=== PATIENT | male | born 1975 | race Caucasian/White ===

== ENCOUNTER 2022-07-01 17:25 | Emergency (ER) | payer BC ==
[2022-07-01 18:15] LABS: CORONAVIRUS COVID-19 NAA NEGATIVE (NEGATIVE); RESPIRATORY SYNCYTIAL VIR NAA NEGATIVE (NEGATIVE)
[2022-07-01 18:25] LABS: ANION GAP 8.3 meq/L (7-15); CHLORIDE,CL 102 mmol/L (98-107); SODIUM,NA 140 mmol/L (136-145)
[2022-07-01] MEDS: Albuterol/Ipratropium 3.0-0.5 MG/3 ML Neb Soln NEB ONE (18:30)
[2022-07-01 18:36] LABS: ESTIMATED GFR 61 mL/min (>=60)
== END 2022-07-01 19:15 | disposition home or self-care (01) ==
LOC: LL.ED 17:25
DX: J18.9 Pneumonia, unspecified organism (principal); I10 Essential (primary) hypertension; E66.9 Obesity, unspecified; Z68.30 Body mass index [BMI] 30.0-30.9, adult; Z20.822 Contact with and (suspected) exposure to COVID-19
CPT/HCPCS: 0241U; 36415; 71046; 80053; 85025; 86140; 99285; J7620-GY

== ENCOUNTER 2023-12-06 09:01 | Emergency (ER) | payer OTHER ==
[2023-12-06 10:01] LABS: BASOPHILS ABSOLUTE AUTO 0.06 K/uL (0.00-0.20); BASOPHILS PERCENT AUTO 0.4 % (0.0-2.0); EOSINOPHILS ABSOLUTE AUTO 0.25 K/uL (0.00-0.50); EOSINOPHILS PERCENT AUTO 1.8 % (0.0-5.0); HEMATOCRIT 52.6 % (39.0-49.0); LYMPHOCYTES ABSOLUTE AUTO 1.52 K/uL (0.50-3.50); LYMPHOCYTES PERCENT AUTO 11.2 % (10.0-50.0); MEAN CORPUSCULAR HEMOGLOBIN 29.7 pg (28.2-33.3); MEAN CORPUSCULAR HGB CONC 34.2 g/dL (31.7-36.0); MEAN CORPUSCULAR VOLUME 86.8 fL (84.0-98.0); MONOCYTES ABSOLUTE AUTO 0.93 K/uL (0.00-1.00); MONOCYTES PERCENT AUTO 6.8 % (2.0-14.0); NEUTROPHILS ABSOLUTE AUTO 10.85 K/uL (1.40-7.00); NEUTROPHILS PERCENT AUTO 79.8 % (45.0-80.0); PLATELET COUNT,PLT 240 K/uL (150-350); RED BLOOD CELL COUNT 6.06 M/uL (4.33-5.41); RED CELL DISTRIBUTION WIDTH 13.6 % (11.2-14.1); WHITE BLOOD CELL COUNT,WBC 13.6 K/uL (4.0-10.2)
[2023-12-06] MEDS ORDERED: Naloxone 0.4 MG/ML SDV IVPUSH PRN (10:03)
[2023-12-06] MEDS: Ondansetron 4 MG/2 ML SDV IVPUSH ONE (10:08)
[2023-12-06] MEDS: HYDROmorphone 1 MG/ML Syringe IVPUSH ONE (10:08)
[2023-12-06] MEDS: Sodium Chloride 0.9% 1,000 ML IV ONE ×2 (10:09→11:33)
[2023-12-06] MEDS: Orphenadrine 60 MG/2 ML Inj IV ONE (10:09)
[2023-12-06] MEDS: Ketorolac 15 MG/ML SDV IVPUSH ONE (10:10)
[2023-12-06 10:20] LABS: ALANINE AMINOTRANSFERASE,ALT 52 U/L (12-78); ALBUMIN 3.9 g/dL (3.4-5.0); ALKALINE PHOSPHATASE 80 IU/L (46-116); ANION GAP 13.1 meq/L (7-15); ASPARTATE AMNIOTRANSFERASE,AST 22 U/L (15-37); BILIRUBIN TOTAL 0.8 mg/dL (0.2-1.0); BLOOD UREA NITROGEN,BUN 15 mg/dL (7-18); CALCIUM 9.3 mg/dL (8.5-10.1); CARBON DIOXIDE,CO2 24.9 mmol/L (21.0-32.0); CHLORIDE,CL 98 mmol/L (98-107); CREATININE 1.03 mg/dL (0.51-1.17); ESTIMATED GFR 91 mL/min (>=60); GLUCOSE RANDOM 212 mg/dL (70-99); MAGNESIUM 2.1 mg/dL (1.8-2.4); POTASSIUM,K 3.9 mmol/L (3.5-5.1); PROTEIN TOTAL,TP 8.5 g/dL (6.4-8.2); SODIUM,NA 136 mmol/L (136-145)
[2023-12-06 11:15] LABS: CORONAVIRUS COVID-19 NAA NEGATIVE (NEGATIVE); INFLUENZA A NAA NEGATIVE (NEGATIVE); INFLUENZA B NAA NEGATIVE (NEGATIVE); RESPIRATORY SYNCYTIAL VIR NAA NEGATIVE (NEGATIVE)
[2023-12-06] MEDS: methylPREDNISolone Sodium Succinate 125 MG/2 ML SDV IVPUSH ONE (12:49)
[2023-12-06] MEDS: Sodium Chloride 0.9% 10 ML Syringe FLUSH PRN (12:49)
== END 2023-12-06 13:00 | disposition home or self-care (01) ==
LOC: LL.ED 09:01
DX: M54.42 Lumbago with sciatica, left side (principal); E86.0 Dehydration; I10 Essential (primary) hypertension; Z88.1 Allergy status to other antibiotic agents; Z79.899 Other long term (current) drug therapy; Z79.82 Long term (current) use of aspirin
CPT/HCPCS: 0241U; 36415; 74176; 80053; 83605; 83735; 85025; 96361; 96374; 96375; 99284; 99284-25; J1170; J1885; J2360; J2405; J2930; J3490; J7030

== ENCOUNTER 2024-07-01 19:04 | Emergency (ER) | payer BC, OTHER ==
[2024-07-01 19:37] LABS: BASOPHILS ABSOLUTE AUTO 0.04 K/uL (0.00-0.20); BASOPHILS PERCENT AUTO 0.7 % (0.0-2.0); EOSINOPHILS ABSOLUTE AUTO 0.16 K/uL (0.00-0.50); EOSINOPHILS PERCENT AUTO 2.8 % (0.0-5.0); HEMATOCRIT 42.7 % (39.0-49.0); HEMOGLOBIN 14.8 g/dL (13.1-16.8); IMMATURE GRAN ABSOLUTE AUTO 0.01 10^3/uL (0.00-0.50); IMMATURE GRAN PERCENT AUTO 0.2 % (0.0-5.0); LYMPHOCYTES ABSOLUTE AUTO 1.77 K/uL (0.50-3.50); MEAN CORPUSCULAR HEMOGLOBIN 30.1 pg (28.2-33.3); MEAN CORPUSCULAR HGB CONC 34.7 g/dL (31.7-36.0); MONOCYTES ABSOLUTE AUTO 0.81 K/uL (0.00-1.00); MONOCYTES PERCENT AUTO 14.2 % (2.0-14.0); NEUTROPHILS ABSOLUTE AUTO 2.92 K/uL (1.40-7.00); NEUTROPHILS PERCENT AUTO 51.1 % (45.0-80.0); PLATELET COUNT,PLT 197 K/uL (150-350); RED BLOOD CELL COUNT 4.91 M/uL (4.33-5.41); RED CELL DISTRIBUTION WIDTH 12.7 % (11.2-14.1); WHITE BLOOD CELL COUNT,WBC 5.7 K/uL (4.0-10.2)
[2024-07-01 20:02] LABS: ALANINE AMINOTRANSFERASE,ALT 66 U/L (12-78); ALBUMIN 3.5 g/dL (3.4-5.0); ALKALINE PHOSPHATASE 62 IU/L (46-116); ANION GAP 9.9 meq/L (7-15); ASPARTATE AMNIOTRANSFERASE,AST 26 U/L (15-37); BILIRUBIN TOTAL 0.4 mg/dL (0.2-1.0); BLOOD UREA NITROGEN,BUN 20 mg/dL (7-18); CARBON DIOXIDE,CO2 29.1 mmol/L (21.0-32.0); CHLORIDE,CL 103 mmol/L (98-107); CREATININE 0.94 mg/dL (0.51-1.17); GLUCOSE RANDOM 117 mg/dL (70-99); POTASSIUM,K 3.6 mmol/L (3.5-5.1); PRO B-TYPE NATRIUR PEPT,BNPPRO 37 pg/mL (0-125); PROTEIN TOTAL,TP 7.6 g/dL (6.4-8.2); SODIUM,NA 142 mmol/L (136-145)
[2024-07-01 20:09] LABS: CALCIUM 8.7 mg/dL (8.5-10.1)
[2024-07-01 20:19] LABS: ESTIMATED GFR 101 mL/min (>=60)
== END 2024-07-01 20:45 | disposition home or self-care (01) ==
LOC: LL.ED 19:04
DX: R06.02 Shortness of breath (principal); F41.9 Anxiety disorder, unspecified; I10 Essential (primary) hypertension; E11.9 Type 2 diabetes mellitus without complications; E66.9 Obesity, unspecified; Z79.899 Other long term (current) drug therapy; Z79.85 Long-term (current) use of injectable non-insulin antidiabetic drugs; Z88.1 Allergy status to other antibiotic agents
CPT/HCPCS: 36415; 80053; 83880; 84484; 85025; 93005; 93010; 99284; 99285